=== PATIENT | male | born 1990 | race Caucasian/White ===

== ENCOUNTER 2017-01-27 07:33 | Emergency (ER) | payer BC, OTHER ==
[2017-01-27] MEDS ORDERED: Sodium Chloride Irrig Solution 250 ML BOT ONE (07:35)
[2017-01-27] MEDS ORDERED: Morphine Sulfate 2 MG/ML SYRINGE ONE ×2 (07:59→08:26)
[2017-01-27 08:05] LABS: #Eosinphils 0.1 thou/uL (0.0-0.7); #Lymphocytes 1.8 thou/uL (1.20-3.40); #Monocytes 0.7 thou/uL (0.11-0.59); #Neutrophils 8.5 thou/uL (1.40-6.50); %Basophils 0.4 % (0.0-1.0); %Eosinophils 0.5 % (0.0-10.0); %Lymphocytes 16.1 % (21.0-51.0); %Neutrophils 77.1 % (42.0-75.0); Hemoglobin 14.8 g/dL (14.0-18.0); Mean Corpuscular HGB CONC 36.7 g/dL (32.0-36.0); Mean Corpuscular Hemoglobin 33.9 pg (27.0-31.0); Mean Corpuscular Volume 92.4 fl (80.0-94.0); Mean Platelet Volume 7.3 fL (7.4-10.4); Platelet Count 232 thou/uL (130-400); RBC Distribution Width 10.3 % (11.5-14.5); Red Blood Cell (RBC) Count 4.37 mill/uL (4.70-6.10)
[2017-01-27 08:06] LABS: Prothrombin Time 13.4 SEC (12.0-14.7)
[2017-01-27 08:07] LABS: PTT 93.8 SEC (22.9-36.1)
[2017-01-27 08:14] LABS: ALT (SGPT) 21 U/L (8-55); AST (SGOT) 25 U/L (5-34); Albumin 3.7 g/dL (3.5-5.0); Alcohol Less than 10 mg/dL (Less than 10); Alkaline Phosphatase 72 U/L (40-150); Anion Gap 13 mmol/L (10-20); BUN (Urea Nitrogen) 9 mg/dL (8.9-20.6); Bilirubin, Total 0.4 mg/dL (0.2-1.2); Calc. Creatinine Clearance 0 mL/min (70-130); Carbon Dioxide 28 mmol/L (22-29); Chloride 103 mmol/L (98-107); Estimated GFR-MDRD Greater than 90; Globulin 2.7 g/dL (2.4-3.5); Glucose 92 mg/dL (70-105); Lipase 10 U/L (8-78); Potassium 3.9 mmol/L (3.5-5.1); Protein, Total 6.4 g/dL (6.0-8.3); Sodium 140 mmol/L (136-145)
[2017-01-27] MEDS ORDERED: Ondansetron HCl/PF 4 MG/2 ML Vial ONE (08:56)
[2017-01-27] MEDS ORDERED: Fentanyl 100 MCG/2 ML VIAL ONE (09:26)
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
[2017-01-27] MEDS ORDERED: Iopamidol 370 76% 125 ML VIAL FS ONE (10:15)
== END 2017-01-27 09:43 | disposition short-term general hospital (02) ==
LOC: MADERS 07:33
DX: S32.011A Stable burst fracture of first lumbar vertebra, initial encounter for closed fracture (principal); V89.2XXA Person injured in unspecified motor-vehicle accident, traffic, initial encounter
CPT/HCPCS: 36415; 70450; 71260; 72125; 74177; 80053; 80307; 83690; 85025; 85610; 85730; 93005; 96374; 96375; 96376; J2270; J2405; J3010